=== PATIENT | male | born 1980 | race Caucasian/White ===

== ENCOUNTER → 2016-11-10 | Outpatient (CLI) | payer BC ==
[~2016-11-10] MED LIST: FLEXERIL10 MG PO; NAPROSYN500 MG PO
== END | disposition home or self-care (01) ==
LOC: US 14:53
DX: N32.89 Other specified disorders of bladder (principal)

== ENCOUNTER → 2016-11-24 | Outpatient (CLI) | payer BC | END | disposition home or self-care (01) | LOC: CT 08:57 | DX: K76.0 Fatty (change of) liver, not elsewhere classified (principal); R30.0 Dysuria; R33.9 Retention of urine, unspecified; N50.819 Testicular pain, unspecified; R39.15 Urgency of urination ==

== ENCOUNTER 2019-05-22 01:52 | Emergency (ER) | payer BC ==
[~2019-05-22] VITALS: Ht 175.2 cm; Wt 101.6 kg
[2019-05-23] MEDS ORDERED: CEPHALEXIN500 M1 PO (16:10)
== END 2019-05-22 03:49 | disposition home or self-care (01) ==
LOC: ED 01:52
DX: M79.645 Pain in left finger(s) (principal)

== ENCOUNTER 2019-05-23 15:39 | Emergency (ER) | payer BC ==
[~2019-05-23] VITALS: Ht 175.2 cm; Wt 101.6 kg
[2019-05-23] MEDS ORDERED: CEPHALEXIN500 M1 PO (16:10)
== END 2019-05-23 16:28 | disposition home or self-care (01) ==
LOC: ED 15:39
DX: L03.012 Cellulitis of left finger (principal)